=== PATIENT | male | born 1945 | race Caucasian/White ===

== ENCOUNTER 2017-05-03 13:18 | Day surgery (SDC) | payer OTHER ==
[~2017-05-03] VITALS: Ht 165.1 cm; Wt 85.9 kg
[~2017-05-03 13:18] MED LIST: ARTIFICIAL TEAR15 M1 BOTH EYES; CARBAMIDE PEROX15 ML BOTH EARS; DESYREL100 MG PO; GLUCOPHAGE1000 MG PO; GLUCOTROL5 MG PO; LASIX20 MG PO; LIPITOR80 MG PO; LO-DOSE ASPIRIN81 M1 PO; MONOKET,ISMO20 MG PO; NITROSTAT0.4 MG SL; PLAVIX75 MG PO; PROTONIX40 MG PO; RANEXA500 MG PO; TENORMIN25 MG PO; ULTRAM50 MG PO; VITAMIN B-121000 MC3 PO
[2017-05-03 13:55] LABS: HEMATOCRIT 46.4 % (38.0-50.0); HEMOGLOBIN 15.2 G/DL (12.5-16.6); MCH 30.5 PG (29.0-34.0); MCHC 32.8 G/DL (30.0-36.0); MCV 93.2 FL (86-99); PLATELET COUNT 209 K/uL (156-360); RBC DIS.WIDTH-CV 13.4 % (11.8-14.6); RBC DIS.WIDTH-SD 45.8 % (39-53); RED BLOOD COUNT 4.98 M/uL (4.00-5.50); WHITE BLOOD COUNT 23.8 K/uL (4.1-10.2)
[2017-05-03 14:25] VITALS: BP 134/80
[2017-05-03 17:30] VITALS: BP 143/91
[2017-05-03 18:20] VITALS: BP 121/68
== END 2017-05-03 18:30 | disposition home or self-care (01) ==
LOC: SDC 13:18
PROVIDERS: Orthopaedic Surgery Hand Surgery
DX: M72.0 Palmar fascial fibromatosis [Dupuytren] (principal); G47.30 Sleep apnea, unspecified; I10 Essential (primary) hypertension; E11.9 Type 2 diabetes mellitus without complications; I25.2 Old myocardial infarction; M06.9 Rheumatoid arthritis, unspecified; Z95.5 Presence of coronary angioplasty implant and graft; Z95.1 Presence of aortocoronary bypass graft; Z79.82 Long term (current) use of aspirin; Z79.84 Long term (current) use of oral hypoglycemic drugs
CPT/HCPCS: 82948; 85027; J0690; J3010; S0020